=== PATIENT | male | born 2000 | race Two or more races ===

== ENCOUNTER 2024-04-08 18:39 | Emergency (ER) | payer OTHER ==
[~2024-04-08] VITALS: Ht 167.6 cm; Wt 68.0 kg
[2024-04-08] MEDS ORDERED: DEXAMETHASONE SODIUM PHOSPHATE 4 MG/ML VIAL IM STA (20:29)
[2024-04-08] MEDS ORDERED: KETOROLAC TROMETHAMINE 30 MG VIAL IM STA (20:30)
[2024-04-08] MEDS ORDERED: ORPHENADRINE CITRATE 30 MG/ML AMPUL IM STA (20:30)
== END 2024-04-08 21:20 | disposition home or self-care (01) ==
LOC: ER 18:41
DX: R53.81 Other malaise (principal); M62.838 Other muscle spasm; Z88.0 Allergy status to penicillin; Z88.1 Allergy status to other antibiotic agents